=== PATIENT | female | born 1955 | race Caucasian/White ===

== ENCOUNTER → 2018-12-04 | Outpatient (CLI) | payer OTHER ==
[~2018-12-04] MED LIST: ATOR40TA; ATOR40TA PO; LEVSOD137 PO
== END | disposition home or self-care (01) ==
LOC: LAB SRC 11:57 → LAB SHORT 11:57
DX: D72.9 Disorder of white blood cells, unspecified (principal)
CPT/HCPCS: 87086

== ENCOUNTER → 2018-12-07 | Outpatient (CLI) | payer OTHER | END | disposition home or self-care (01) | LOC: LAB SHORT 12:15 → LAB 12:15 | DX: R30.0 Dysuria (principal) | CPT/HCPCS: 87086 ==

== ENCOUNTER → 2020-10-07 | Outpatient (CLI) | payer OTHER | END | disposition home or self-care (01) | LOC: LAB 13:40 → LAB SHORT 13:40 | DX: N39.0 Urinary tract infection, site not specified (principal); R39.9 Unspecified symptoms and signs involving the genitourinary system | CPT/HCPCS: 87077; 87086; 87147; 87186 ==